=== PATIENT | female | born 1950 | race African-American/Black ===

== ENCOUNTER 2022-01-30 22:53 | Inpatient (IN) | payer OTHER, BC ==
[2022-01-30] MEDS ORDERED: ALBUTEROL SO4 2.5/IPRATROPIUM 0.5 INH SOL 3 ML VIAL.NEB. NEB ONE (23:19)
[2022-01-30 23:39] LABS: BASO % 0.8 % (0-2.0); EOS % 9.5 % (0-4.5); HEMOGLOBIN 12.6 GM/dL (10.7-15.3); LYMPH % 34.7 % (8-40); MCH 30.5 pg (25.7-33.7); MCHC 33.2 g/dl (32.0-36.0); MEAN CELL VOLUME 91.9 fl (80-96); MEAN PLT VOLUME 7.2 fl (7.5-11.1); MONO % 6.8 % (3.8-10.2); NEUT % 48.2 % (42.8-82.8); PLATELET COUNT 303 10^3/uL (134-434); RBC 4.14 M/mm3 (3.60-5.2); RDW 14.1 % (11.6-15.6); WHITE BLOOD COUNT 7.7 K/mm3 (4.0-10.0)
[2022-01-30 23:46] LABS: INR 1.02 (0.83-1.09); PROTHROMBIN TIME (PATIENT) 11.7 SEC (9.7-13.0)
[2022-01-30 23:48] LABS: ACTIVATED PTT 35.5 SECONDS (25.2-36.5)
[2022-01-31 00:01] LABS: ALBUMIN 3.9 g/dl (3.4-5.0); BLOOD UREA NITROGEN 26.9 mg/dL (7-18); CALCIUM 9.9 mg/dL (8.5-10.1)
[2022-01-31 00:05] LABS: CREATININE 1.2 mg/dL (0.55-1.3)
[2022-01-31 00:06] LABS: BILIRUBIN,TOTAL 0.6 mg/dL (0.2-1); TOT PROT 7.6 g/dl (6.4-8.2)
[2022-01-31 00:10] LABS: N-TERMINAL BNP 15.3 pg/ml (5-125)
[2022-01-31 01:04] VITALS: BMI 29.0
[2022-01-31 08:44] LABS: BASO % 0.7 % (0-2.0); EOS % 6.7 % (0-4.5); HEMATOCRIT 37.8 % (32.4-45.2); HEMOGLOBIN 12.4 GM/dL (10.7-15.3); LYMPH % 33.6 % (8-40); MCH 29.9 pg (25.7-33.7); MCHC 32.7 g/dl (32.0-36.0); MEAN CELL VOLUME 91.2 fl (80-96); MEAN PLT VOLUME 7.6 fl (7.5-11.1); MONO % 8.4 % (3.8-10.2); NEUT % 50.6 % (42.8-82.8); PLATELET COUNT 317 10^3/uL (134-434); RBC 4.14 M/mm3 (3.60-5.2); RDW 14.2 % (11.6-15.6); WHITE BLOOD COUNT 9.1 K/mm3 (4.0-10.0)
[2022-01-31 09:04] LABS: CHLORIDE 104 mmol/L (98-107); SODIUM 142 mmol/L (136-145)
[2022-01-31 09:08] LABS: CALCIUM 9.9 mg/dL (8.5-10.1)
[2022-01-31 09:10] LABS: ANION GAP 9 MMOL/L (8-16); BLOOD UREA NITROGEN 24.8 mg/dL (7-18); CO2 29 mmol/L (21-32); GLUCOSE,RANDOM 102 mg/dL (74-106)
[2022-01-31] MEDS ORDERED: ASPIRIN 81 MG CHEWABLE TABLETS ONE (09:47)
[2022-01-31] MEDS: ASPIRIN 81 MG CHEWABLE TABLETS PO SCH (09:47)
[2022-01-31] MEDS ORDERED: ATORVASTATIN CA 20 MG TABLET (FP) ONE (09:47)
[2022-01-31] MEDS: ATORVASTATIN CA 20 MG TABLET (FP) PO SCH (23:05)
[2022-02-01] MEDS: ASPIRIN 81 MG CHEWABLE TABLETS PO SCH (10:20)
[2022-02-01] MEDS ORDERED: ASPIRIN 81 MG CHEWABLE TABLETS ONE ×2 (10:22→10:24)
[2022-02-01] MEDS: ALBUTEROL SO4 2.5/IPRATROPIUM 0.5 INH SOL 3 ML VIAL.NEB. NEB PRN (16:41)
[2022-02-01] MEDS ORDERED: ATORVASTATIN CA 10 MG TABLET (FP) ONE (22:20)
[2022-02-02] MEDS: ATORVASTATIN CA 20 MG TABLET (FP) PO SCH ×2 (08:46→21:50)
[2022-02-02] MEDS: ASPIRIN 81 MG CHEWABLE TABLETS PO SCH (09:08)
[2022-02-02] MEDS: ALBUTEROL SO4 2.5/IPRATROPIUM 0.5 INH SOL 3 ML VIAL.NEB. NEB PRN (23:28)
[2022-02-03] MEDS: metFORMIN HCL 500 MG TABLET (FP) PO SCH ×2 (06:45→16:32)
[2022-02-03] MEDS: ASPIRIN 81 MG CHEWABLE TABLETS PO SCH (09:03)
[2022-02-03] MEDS: methylPREDNISolone NA SUCC 40 MG/1 ML VIAL IVPUSH SCH ×2 (11:32→17:11)
[2022-02-03] MEDS: ALBUTEROL SO4 2.5/IPRATROPIUM 0.5 INH SOL 3 ML VIAL.NEB. NEB SCH ×3 (12:00→21:23)
[2022-02-03] MEDS ORDERED: guaiFENesin/CODEINE 5 ML UNIT-DOSE CUPS PO PRN (19:27)
[2022-02-03] MEDS: DOCUSATE SODIUM 100 MG CAPSULE (FP) PO SCH (21:22)
[2022-02-03] MEDS: ATORVASTATIN CA 20 MG TABLET (FP) PO SCH (21:22)
[2022-02-03] MEDS: HEPARIN NA (PORCINE) 5,000 UNITS/ML 1ML VIAL SQ SCH (21:24)
[2022-02-04] MEDS: methylPREDNISolone NA SUCC 40 MG/1 ML VIAL IVPUSH SCH ×4 (01:15→17:06)
[2022-02-04] MEDS: metFORMIN HCL 500 MG TABLET (FP) PO SCH ×2 (06:18→17:06)
[2022-02-04] MEDS: ALBUTEROL SO4 2.5/IPRATROPIUM 0.5 INH SOL 3 ML VIAL.NEB. NEB SCH ×4 (07:55→19:48)
[2022-02-04] MEDS ORDERED: REGADENOSON 0.4 MG/5 ML PRE-FILLED SYRINGE IVPUSH ONE ×2 (09:22→10:15)
[2022-02-04] MEDS: HEPARIN NA (PORCINE) 5,000 UNITS/ML 1ML VIAL SQ SCH ×2 (11:48→21:21)
[2022-02-04] MEDS: ASPIRIN 81 MG CHEWABLE TABLETS PO SCH (11:51)
[2022-02-04 15:47] LABS: HEMATOCRIT 38.7 % (32.4-45.2); HEMOGLOBIN 12.6 GM/dL (10.7-15.3); MCH 29.9 pg (25.7-33.7); MCHC 32.6 g/dl (32.0-36.0); MEAN CELL VOLUME 91.7 fl (80-96); MEAN PLT VOLUME 8.3 fl (7.5-11.1); PLATELET COUNT 373 10^3/uL (134-434); RBC 4.22 M/mm3 (3.60-5.2); RDW 14.4 % (11.6-15.6); WHITE BLOOD COUNT 12.2 K/mm3 (4.0-10.0)
[2022-02-04 16:09] LABS: CALCIUM 9.7 mg/dL (8.5-10.1)
[2022-02-04 16:10] LABS: BLOOD UREA NITROGEN 35.9 mg/dL (7-18); MAGNESIUM 1.9 mg/dL (1.8-2.4)
[2022-02-04 16:13] LABS: CREATININE 1.8 mg/dL (0.55-1.3)
[2022-02-04] MEDS: INSULIN SLIDING SCALE (NOVOLOG) 1 VIAL SQ SCH ×2 (17:05→22:21)
[2022-02-04] MEDS: SODIUM CHLORIDE 1,000 ML IV SCH (17:09)
[2022-02-04] MEDS: BENZOCAINE/MENTH/CETYLPYRD CL 1 EACH LOZENGE MM PRN ×2 (17:56→21:20)
[2022-02-04] MEDS: ATORVASTATIN CA 20 MG TABLET (FP) PO SCH (21:21)
[2022-02-04] MEDS: DOCUSATE SODIUM 100 MG CAPSULE (FP) PO SCH (21:21)
[2022-02-04] MEDS: INSULIN (LEVEMIR) 100 UNITS/ML UNITS SQ SCH (22:22)
[2022-02-05] MEDS: methylPREDNISolone NA SUCC 40 MG/1 ML VIAL IVPUSH SCH (01:53)
[2022-02-05] MEDS: metFORMIN HCL 500 MG TABLET (FP) PO SCH ×2 (06:02→17:18)
[2022-02-05] MEDS: ALBUTEROL SO4 2.5/IPRATROPIUM 0.5 INH SOL 3 ML VIAL.NEB. NEB SCH ×4 (07:40→19:40)
[2022-02-05] MEDS: INSULIN SLIDING SCALE (NOVOLOG) 1 VIAL SQ SCH ×4 (08:12→22:44)
[2022-02-05 10:08] LABS: ALBUMIN 3.7 g/dl (3.4-5.0); BLOOD UREA NITROGEN 32.2 mg/dL (7-18); CALCIUM 9.6 mg/dL (8.5-10.1)
[2022-02-05 10:11] LABS: CREATININE 1.3 mg/dL (0.55-1.3)
[2022-02-05 10:13] LABS: BILIRUBIN,TOTAL 0.4 mg/dL (0.2-1); TOT PROT 7.4 g/dl (6.4-8.2)
[2022-02-05] MEDS: INSULIN (LEVEMIR) 100 UNITS/ML UNITS SQ SCH ×2 (10:22→22:43)
[2022-02-05] MEDS: ASPIRIN 81 MG CHEWABLE TABLETS PO SCH (10:22)
[2022-02-05] MEDS: HEPARIN NA (PORCINE) 5,000 UNITS/ML 1ML VIAL SQ SCH ×2 (10:22→22:42)
[2022-02-05] MEDS: predniSONE 20 MG TABLET (UD) PO SCH (10:22)
[2022-02-05] MEDS: SODIUM CHLORIDE 1,000 ML IV SCH (16:30)
[2022-02-05] MEDS: DOCUSATE SODIUM 100 MG CAPSULE (FP) PO SCH (22:42)
[2022-02-05] MEDS: ATORVASTATIN CA 20 MG TABLET (FP) PO SCH (22:43)
[2022-02-06] MEDS: metFORMIN HCL 500 MG TABLET (FP) PO SCH (06:10)
[2022-02-06] MEDS: INSULIN SLIDING SCALE (NOVOLOG) 1 VIAL SQ SCH ×2 (06:11→11:51)
[2022-02-06] MEDS: ALBUTEROL SO4 2.5/IPRATROPIUM 0.5 INH SOL 3 ML VIAL.NEB. NEB SCH ×2 (08:08→11:15)
[2022-02-06] MEDS: ASPIRIN 81 MG CHEWABLE TABLETS PO SCH (10:06)
[2022-02-06] MEDS: predniSONE 20 MG TABLET (UD) PO SCH (10:06)
[2022-02-06] MEDS: HEPARIN NA (PORCINE) 5,000 UNITS/ML 1ML VIAL SQ SCH (10:06)
[2022-02-06] MEDS: INSULIN (LEVEMIR) 100 UNITS/ML UNITS SQ SCH (10:12)
[2022-02-06 11:13] VITALS: BP 132/72; PULSE 86; RESP 18; TEMP 98.4
== END 2022-02-06 12:51 | disposition home or self-care (01) | DRG 191 ==
LOC: JER 22:53 → JERBED 23:35 → J6W 02-02 07:09 → OBSVTOIN 02-03 11:32
PROVIDERS: ADMIT Internal Medicine; ATTEND Family Medicine
DX: J44.1 Chronic obstructive pulmonary disease with (acute) exacerbation (principal); I24.8 Other forms of acute ischemic heart disease; I10 Essential (primary) hypertension; K21.9 Gastro-esophageal reflux disease without esophagitis; E78.5 Hyperlipidemia, unspecified; E11.65 Type 2 diabetes mellitus with hyperglycemia
CPT/HCPCS: 0241U-QW; 36415; 71045-TC-FY; 78452-TC; 80048; 80053; 82962; 83735; 83880; 84443; 84484; 85025; 85027; 85379; 85610; 85730; 86900; 93005; 93010; 93017; 93306-TC; 94640; 97116-GP; 97162-GP; 99283-25; 99285-25; A9502; G0378; J1644; J2785

== ENCOUNTER 2024-02-22 14:16 | Emergency (ER) | payer OTHER, BC ==
[2024-02-22 14:32] VITALS: BP 168/84; PULSE 98; RESP 24; TEMP 98.3; BMI 26.6
[2024-02-22] MEDS: ALBUTEROL SO4 2.5/IPRATROPIUM 0.5 INH SOL 3 ML VIAL.NEB. NEB SCH (17:32)
[2024-02-22] MEDS ORDERED: ALBUTEROL SO4 2.5/IPRATROPIUM 0.5 INH SOL 3 ML VIAL.NEB. NEB ONE ×2 (17:34→18:54)
[2024-02-22 17:51] LABS: BASO % 0.6 % (0-2.0); EOS % 6.6 % (0-4.5); HEMATOCRIT 38.3 % (32.4-45.2); HEMOGLOBIN 13.1 GM/dL (10.7-15.3); LYMPH % 37.1 % (8-40); MCH 31.2 pg (25.7-33.7); MCHC 34.2 g/dl (32.0-36.0); MEAN CELL VOLUME 91.2 fl (80-96); MEAN PLT VOLUME 7.2 fl (7.5-11.1); MONO % 10.2 % (3.8-10.2); NEUT % 45.5 % (42.8-82.8); PLATELET COUNT 269 10^3/uL (134-434); RDW 14.3 % (11.6-15.6)
[2024-02-22 17:57] LABS: VENOUS BASE EXCESS 2.2 mmol/L (-2-2); VENOUS O2 SATURATION 31.5 % (70-80); VENOUS PCO2 50.9 mmHg (38-52); VENOUS PH 7.369 (7.310-7.410)
[2024-02-22 18:05] LABS: INR 1.03 (0.83-1.09); PROTHROMBIN TIME (PATIENT) 11.8 SEC (9.7-13.0)
[2024-02-22 18:07] LABS: ACTIVATED PTT 37.9 SECONDS (25.2-36.5)
[2024-02-22] MEDS ORDERED: methylPREDNISolone NA SUCC 125 MG/2 ML VIAL ONE (18:07)
[2024-02-22 18:12] LABS: POTASSIUM 3.7 mmol/L (3.5-5.1)
[2024-02-22 18:14] LABS: ALBUMIN 4.2 g/dl (3.4-5.0); BLOOD UREA NITROGEN 26.5 mg/dL (7-18); MAGNESIUM 1.9 mg/dL (1.8-2.4)
[2024-02-22 18:17] LABS: CREATININE 1.4 mg/dL (0.55-1.3)
[2024-02-22] MEDS: methylPREDNISolone NA SUCC 125 MG/2 ML VIAL IVPB ONE (18:18)
[2024-02-22 18:19] LABS: BILIRUBIN,TOTAL 0.6 mg/dL (0.2-1); TOT PROT 7.9 g/dl (6.4-8.2)
[2024-02-22] MEDS: ALBUTEROL SO4 2.5/IPRATROPIUM 0.5 INH SOL 3 ML VIAL.NEB. NEB ONE (18:57)
== END 2024-02-22 19:30 | disposition home or self-care (01) ==
LOC: JER 14:16
PROC: 3E033GC Introduction of Other Therapeutic Substance into Peripheral Vein, Percutaneous Approach (ICD-10-PCS; principal; 2024-02-22)
PROC: 3E0F7GC Introduction of Other Therapeutic Substance into Respiratory Tract, Via Natural or Artificial Opening (ICD-10-PCS; 2024-02-22)
PROC: 3E0F7GC Introduction of Other Therapeutic Substance into Respiratory Tract, Via Natural or Artificial Opening (ICD-10-PCS; 2024-02-22)
DX: J10.1 Influenza due to other identified influenza virus with other respiratory manifestations (principal); R06.02 Shortness of breath; R05.9 Cough, unspecified; R00.0 Tachycardia, unspecified; Z20.822 Contact with and (suspected) exposure to COVID-19
CPT/HCPCS: 0241U-QW; 36415; 71046-TC-FY; 80053; 82803; 83735; 83880; 84484; 85025; 85610; 85730; 93005; 93010; 99285-25